=== PATIENT | male | born 1950 | race Caucasian/White ===

== ENCOUNTER 2024-06-29 06:30 | Day surgery (SDC) | payer BC, SELFPAY | END 2024-06-29 13:55 | disposition home or self-care (01) | LOC: GI 06:30 | PROVIDERS: ATTENDING PHYSICIAN Internal Medicine; FAMILY PHYSICIAN Internal Medicine | DX: Z12.11 Encounter for screening for malignant neoplasm of colon (principal); K57.30 Diverticulosis of large intestine without perforation or abscess without bleeding; K64.8 Other hemorrhoids; D12.2 Benign neoplasm of ascending colon; D12.4 Benign neoplasm of descending colon | CPT/HCPCS: 45385; 45380; 88305 ==